=== PATIENT | female | born 1985 | race Two or more races ===

== ENCOUNTER 2022-04-14 18:59 | Emergency (ER) | payer OTHER ==
[2022-04-14 19:27] VITALS: BP 118/78; PULSE 88; RESP 19; TEMP 98.1; BMI 27.3
[2022-04-14] MEDS ORDERED: ASPIRIN 81 MG CHEWABLE TABLETS PO ONE (21:03)
[2022-04-14] MEDS ORDERED: ASPIRIN 81 MG CHEWABLE TABLETS ONE (21:35)
[2022-04-14 22:06] LABS: EOS % 0.9 % (0-4.5); HEMATOCRIT 31.9 % (32.4-45.2); HEMOGLOBIN 10.1 GM/dL (10.7-15.3); LYMPH % 34.2 % (8-40); MCH 24.7 pg (25.7-33.7); MCHC 31.8 g/dl (32.0-36.0); MEAN CELL VOLUME 77.6 fl (80-96); MEAN PLT VOLUME 10.5 fl (7.5-11.1); MONO % 7.2 % (3.8-10.2); NEUT % 56.7 % (42.8-82.8); PLATELET COUNT 164 10^3/uL (134-434); RDW 15.6 % (11.6-15.6); WHITE BLOOD COUNT 7.1 K/mm3 (4.0-10.0)
[2022-04-14 22:17] LABS: INR 1.03 (0.83-1.09); PROTHROMBIN TIME (PATIENT) 11.9 SEC (9.7-13.0)
[2022-04-14 22:18] LABS: EPI CELLS 10 /uL (0-25.1); HYALINE CASTS 1 /uL (0-3.1); PH,URINE 5.5 (5.0-8.0); URINE APPEARANCE CLEAR; URINE BACTERIA >9,000 /uL (0-1359); URINE BILIRUBIN NEGATIVE (NEGATIVE); URINE COLOR YELLOW; URINE GLUCOSE (UA) NEGATIVE (NEGATIVE); URINE KETONE NEGATIVE (NEGATIVE); URINE LEUK ESTERASE TRACE (NEGATIVE); URINE NITRITE POSITIVE (NEGATIVE); URINE PROTEIN NEGATIVE (NEGATIVE); URINE RBC 5 /uL (0-23.9); URINE UROBILINOGEN 0.2 mg/dL (0.2-1.0); URINE WBC 25 /uL (0-25.8)
[2022-04-14 22:20] LABS: ACTIVATED PTT 31.3 SECONDS (25.2-36.5)
[2022-04-14 22:23] LABS: CHLORIDE 108 mmol/L (98-107); SODIUM 141 mmol/L (136-145)
[2022-04-14 22:25] LABS: CALCIUM 8.9 mg/dL (8.5-10.1)
[2022-04-14 22:26] LABS: ANION GAP 7 MMOL/L (8-16); BLOOD UREA NITROGEN 8.9 mg/dL (7-18); CO2 27 mmol/L (21-32); GLUCOSE,RANDOM 86 mg/dL (74-106); MAGNESIUM 2.1 mg/dL (1.8-2.4)
[2022-04-14 22:29] LABS: CREATININE 0.7 mg/dL (0.55-1.3); SGOT/AST 19 U/L (15-37); SGPT/ALT 16 U/L (13-61)
[2022-04-14 22:31] LABS: BILIRUBIN,TOTAL 0.3 mg/dL (0.2-1); TOT PROT 7.9 g/dl (6.4-8.2)
[2022-04-14 22:32] LABS: ALK PHOS 62 U/L (45-117)
== END 2022-04-15 00:35 | disposition home or self-care (01) ==
LOC: JER 18:59
DX: N39.0 Urinary tract infection, site not specified (principal)
CPT/HCPCS: 36415; 71275-TC; 80053; 81003; 83735; 84484; 84703; 85025; 85610; 85730; 87086; 87186; 93005; 93010; 99285-25; Q9967